=== PATIENT | female | born 1975 | race Caucasian/White ===

== ENCOUNTER 2020-10-22 11:35 | Outpatient (CLI) | payer OTHER | END 2020-10-22 11:36 | disposition home or self-care (01) | LOC: CSHLAB 11:35 | PROVIDERS: ATTEND Internal Medicine Gastroenterology | DX: Z20.822 Contact with and (suspected) exposure to COVID-19 (principal); R10.9 Unspecified abdominal pain; K57.30 Diverticulosis of large intestine without perforation or abscess without bleeding; Z53.9 Procedure and treatment not carried out, unspecified reason ==

== ENCOUNTER 2020-10-27 06:15 | Day surgery (SDC) | payer OTHER ==
[2020-10-23 15:36] VITALS: BMI 23.9
[2020-10-27] MEDS ORDERED: Lidocaine 1% MPF 2 ML VIAL ONE (06:46)
[2020-10-27] MEDS ORDERED: PROPOFOL 40 ML ONE (07:37)
[2020-10-27] MEDS ORDERED: Midazolam HCl 2 mg/2 ml Vial ONE (07:37)
[2020-10-27] MEDS ORDERED: PROPOFOL 20 ML ONE (08:05)
== END 2020-10-27 09:40 | disposition home or self-care (01) ==
LOC: CSHSDC 06:15
PROVIDERS: ATTEND Internal Medicine Gastroenterology
PROC: 0DJD8ZZ Inspection of Lower Intestinal Tract, Via Natural or Artificial Opening Endoscopic (ICD-10-PCS; principal; 2020-10-27)
DX: R10.9 Unspecified abdominal pain (principal); K57.30 Diverticulosis of large intestine without perforation or abscess without bleeding; I10 Essential (primary) hypertension; F41.8 Other specified anxiety disorders; E03.9 Hypothyroidism, unspecified; Z90.710 Acquired absence of both cervix and uterus
CPT/HCPCS: J2250; J2704